=== PATIENT | female | born 1985 | race Caucasian/White ===

== ENCOUNTER 2020-01-20 12:30 | Inpatient (IN) | payer BC, OTHER ==
[2020-01-20 13:13] LABS: BASO % 0.7 % (0-2.0); HEMOGLOBIN 9.3 GM/dL (10.7-15.3); LYMPH % 18.6 % (8-40); MCH 23.5 pg (25.7-33.7); MCHC 31.9 g/dl (32.0-36.0); MEAN CELL VOLUME 73.7 fl (80-96); MEAN PLT VOLUME 8.9 fl (7.5-11.1); MONO % 8.1 % (3.8-10.2); NEUT % 67.6 % (42.8-82.8); PLATELET COUNT 251 K/MM3 (134-434); RBC 3.94 M/mm3 (3.60-5.2); RDW 17.7 % (11.6-15.6); WHITE BLOOD COUNT 8.7 K/mm3 (4.0-10.0)
[2020-01-20 13:24] LABS: INR 0.93 (0.83-1.09)
[2020-01-20 13:26] LABS: ACTIVATED PTT 25.4 SECONDS (25.2-36.5)
[2020-01-20 13:57] LABS: ALBUMIN 2.6 g/dl (3.4-5.0); BILIRUBIN,TOTAL 0.6 mg/dL (0.2-1); BLOOD UREA NITROGEN 11.8 mg/dL (7-18); CALCIUM 8.7 mg/dL (8.5-10.1); CREATININE 0.5 mg/dL (0.55-1.3); POTASSIUM 4.1 mmol/L (3.5-5.1); URIC ACID 3.4 mg/dL (2.6-7.2)
[2020-01-20 14:05] LABS: URINE APPEARANCE CLEAR; URINE BILIRUBIN NEGATIVE (NEGATIVE); URINE COLOR YELLOW; URINE GLUCOSE (UA) NEGATIVE (NEGATIVE); URINE KETONE NEGATIVE (NEGATIVE); URINE LEUK ESTERASE NEGATIVE (NEGATIVE); URINE NITRITE NEGATIVE (NEGATIVE); URINE PROTEIN NEGATIVE (NEGATIVE); URINE UROBILINOGEN 0.2 mg/dL (0.2-1.0)
[2020-01-20 16:33] LABS: BASO % 0.4 % (0-2.0); EOS % 4.5 % (0-4.5); HEMOGLOBIN 9.5 GM/dL (10.7-15.3); LYMPH % 15.4 % (8-40); MCH 24.6 pg (25.7-33.7); MCHC 32.7 g/dl (32.0-36.0); MEAN CELL VOLUME 75.2 fl (80-96); MEAN PLT VOLUME 9.8 fl (7.5-11.1); MONO % 5.8 % (3.8-10.2); NEUT % 73.9 % (42.8-82.8); PLATELET COUNT 279 K/MM3 (134-434); RBC 3.86 M/mm3 (3.60-5.2); RDW 18.2 % (11.6-15.6); WHITE BLOOD COUNT 10.6 K/mm3 (4.0-10.0)
[2020-01-20 16:35] VITALS: BMI 26.9
[2020-01-20 16:41] LABS: INR 0.93 (0.83-1.09)
[2020-01-20 16:44] LABS: ACTIVATED PTT 24.6 SECONDS (25.2-36.5)
--- OUTSIDE RECORDS SUMMARY | 2020-01-20 16:49 | XMS ---
:1985 Author Organization [facility] Support Name Relationship Address Phone [employer] Unavailable [address] [address] [address] [place] [address] HAZEL LOTT MOTHER [address] PH [phone] [place] [address] Re-disclosure Warning The records that you are about to access may contain information from federally- assisted alcohol or drug abuse programs. If such information is present, then the following federally mandated warning applies: This information has been disclosed to you from records protected by federal confidentiality rules (42 CFR part 2). The federal rules prohibit you from making any further disclosure of this information unless further disclosure is expressly permitted by the written consent of the person to whom it pertains or as otherwise permitted by 42 CFR part 2. A general authorization for the release of medical or other information is NOT sufficient for this purpose. The Federal rules restrict any use of the information to criminally investigate or prosecute any alcohol or drug abuse patient.The records that you are about to access may contain highly sensitive health information, the redisclosure of which is protected by Article 27-F of the [facility] Public Health law. If you continue you may haveaccess to information: Regarding HIV / AIDS; Provided by facilities licensed or operated by the [facility] Office of Mental Health; or Provided by the [facility] Office for People With Developmental Disabilities. If such information is present, then the following [facility] mandated warning applies: This information has been disclosed to you from confidential records which are protected by state law. State law prohibits you from making any further disclosure of this information without the specific written consent of the person to whom it pertains, or as otherwise permitted by law. Any unauthorized further disclosure in violation of state law may result in a fine or penitentiary sentence or both. A general authorization for the release of medical or other information is NOT sufficient authorization for further disclosure. Insurance Providers Payer name Policy type / Policy ID Covered Covered democrat's Policy Plan Coverage type democrat ID relationship to Jarvis Information jarvis BC OUT OF [id number] [id number]
[2020-01-20 16:56] LABS: BLOOD UREA NITROGEN 12.1 mg/dL (7-18); CALCIUM 8.9 mg/dL (8.5-10.1); CREATININE 0.5 mg/dL (0.55-1.3); POTASSIUM 4.2 mmol/L (3.5-5.1)
[2020-01-20] MEDS: SODIUM CHLORIDE 1,000 ML IV SCH (19:00)
[2020-01-20] MEDS ORDERED: DINOPROSTONE 10 MG VAGINAL SUPPOSITORY VG ONE (20:45)
--- NOTE | 2020-01-20 21:47 | HP ---
Past Medical History - Primary Care Physician PCP:: Faisal Tierney - Admission Chief Complaint: 34yo P1 with at EGA 38w1d admitted for labor indx with dx chronic HTN and superimposed preeclampsia. History of Present Illness: Pt has chronic HTN on Metoprolol that she takes daily. Her BP has been normal during the entire . The pt was seen in the office today and noted to have BP 140-150/90's. She is o/w asymptomatic. The pt has normal labs and no protein in UA. is complicated by GDM A2 and excessive weight gain. Vaginal cx is GBS positive. History Source: Patient, Medical Record Limitations to Obtaining History: No Limitations - Past Medical History LIFE SKILLS TEACHER: No: Alzheimer's, CVA, Dementia, Migraine, Multiple Sclerosis, Peripheral Neuropathy, Parkinson's, Seizure, Syncope, TIA, Vertigo, Other Cardiovascular: Yes: HTN, Other (patent foramen ovale with left to right shunt.) Pulmonary: No: Asthma, Bronchitis, Cancer, COPD, O2 Dependent, Pneumonia, Previously Intubated, Pulmonary Embolus, Pulmonary Fibrosis, Sleep Apnea, Other Gastrointestinal: No: Ascites, Cancer, Constipation, Crohn's Disease, Diverticulitis, Diverticulosis, Esophageal Varices, Gastritis, GERD, GI Bleed, Hemorrhoids, Hiatal Hernia, Inflamatory Bowel Disease, Irritable Bowel Disease, Pancreatitis, Peptic Ulcer Disease, Ulcerative Colitis, Other Hepatobiliary: No: Cirrhosis, Cholelithiasis, Cholecystitis, Choledocholithiasis, Hepatitis A, Hepatitis B, Hepatitis C, Other Renal/: No: Renal Failure, Renal Inusuff, BPH, Cancer, Hematuria, Hemodialysis, Neurogenic Bladder, Renal Calculi, UTI, Other Reproductive: No: Ectopic , Endometriosis, Fibroids, PID, Polycystic Ovary Syndrome, Postmenopausal, Other ...: 2 ...Para: 1 ...Term: 1 ...: 0 ...Spon : 0 ...Induced : 0 ...Living Children: 1 ...Multiple Gestation: 0 ...LMP: 04/28/20 ... Weeks Gestation by Dates: 38.1 ...EDC by Dates: 02/02/20 Heme/Onc: Yes: Anemia Infectious Disease: No: AIDS, C-Diff, Herpes Zoster, HIV, MRSA, STD's, Tuberculosis, VREF, Other Psych: No: Addictions, Anxiety, Bipolar, Depression, Panic, Psychosis, Schizophrenia, Other Musculoskeletal: No: Bursitis, Chronic low back pain, Hemiparesis, Hemiplegia, Osteoarthritis, Paraplegia, Other Rheumatology: No: Fibromyalgia, Gout, Lupus, Rheumatoid Arthritis, Sarcoidosis, Vasculitis, Other ENT: No: Allergic Rhinitis, Sinusitis, Other Endocrine: No: Davenport's Disease, Paresh's Disease, Diabetes Insipidus, Diabetes Mellitus, Hyperparathyroidism, Hyperthyroidism, Hypothyroidism, Osteopenia, SIADH, Other Dermatology: No: Basal Cell, Cellulitis, Eczema, Melanoma, Psoriasis, Squamous Cell, Other - Past Surgical History Past Surgical History: Yes: None Hx Myomectomy: No Hx Transabdominal Cerclage: No - Smoking History Smoking history: Never smoked Have you smoked in the past 12 months: No - Alcohol/Substance Use Hx Alcohol Use: No History of Substance Use: reports: None - Social History Usual Living Arrangement: Yes: With Spouse, With Child Do you think of yourself as: Straight/Heterosexual ADL: Independent History of Recent Travel: No Home Medications - Allergies Allergies/Adverse Reactions: Allergies Allergy/AdvReac Type Severity Reaction Status Date / Time No Known Drug Allergies Allergy Verified 01/20/20 13:35 ENVIORNMENTAL OUTDOOR Allergy Uncoded 11/30/15 21:41 ALLERGIES - Home Medications Home Medications: Ambulatory Orders Aspirin 81 tab PO DAILY 01/17/16 Metoprolol/Hydrochlorothiazide 12.5 tab PO DAILY 01/17/16 Vitamins (Sjr) - 1 tab PO DAILY 01/17/16 Insulin (Levemir) [Levemir Vial] 50 units SQ HS 01/20/20 Family Medical History Family History: Unremarkable Review of Systems - Review of Systems Constitutional: reports: No Symptoms Eyes: reports: No Symptoms HENT: reports: No Symptoms Neck: reports: No Symptoms Cardiovascular: reports: No Symptoms Respiratory: reports: No Symptoms Gastrointestinal: reports: No Symptoms Genitourinary: reports: No Symptoms Breasts: reports: No Symptoms Reported Musculoskeletal: reports: No Symptoms Integumentary: reports: No Symptoms Neurological: reports: No Symptoms Endocrine: reports: No Symptoms Hematology/Lymphatic: reports: No Symptoms Psychiatric: reports: No Symptoms Pain Intensity: 0 Physical Exam - Maternity Vital Signs: Vital Signs Temperature 98.2 F 01/20/20 19:00 Pulse Rate 106 H 01/20/20 16:16 Respiratory Rate 17 01/20/20 16:16 Blood Pressure 143/97 01/20/20 19:00 O2 Sat by Pulse Oximetry (%) 100 01/20/20 12:55 Constitutional: Yes: Well Nourished, No Distress, Calm Eyes: Yes: WNL, Conjunctiva Clear, EOM Intact HENT: Yes: WNL, Atraumatic, Normocephalic Neck: Yes: WNL, Supple, Trachea Midline Cardiovascular: Yes: WNL, Regular Rate and Rhythm Lungs: Clear to auscultation, Normal air movement - Abdominal Exam/OB Fundal Height: 39 Number of Fetuses: Single Presentation: Vertex Contractions: Yes Regularity: Irritability Intensity: Unaware Monitor Mode: External Heart Rate (range): 130 Heart Rate Location: Midline Category: I Accelerations: Uniform Decelerations: None - Vaginal Exam/OB Vaginal Bleeding: No Speculum Exam: No Dilatation (cm): 1 Effacement (%): 0 Amniotic Membrane Status: Intact Presentation: Vertex/Position Station: -3 (Gynecoid pelvimetry, EFW ~3600g by Mil maneuvers) - Physical Exam Musculoskeletal: Yes: WNL Extremities: Yes: WNL Edema: No Integumentary: Yes: WNL Deep Tendon Reflex Grade: Normal +2 ...Motor Strength: WNL Psychiatric: Yes: WNL, Alert, Oriented - Labs Lab Results: CBC, BMP 01/20/20 16:00 01/20/20 16:00 Hemorrhage Risk Assessment - Risk Factors Medium Risk Factors: Yes: Hematocrit < 30% & other (on ASA) High Risk Factors: Yes: None Risk Score: 1 Risk Level: Medium Risk Imaging - Results Ultrasound: Report Reviewed Assessment/Plan 34yo P1 with at EGA 38w1d admitted for labor indx with dx chronic HTN and superimposed preeclampsia. Pt is not in labor. Fetus with Category I tracing. Adequate gynecoid pelvimetry on exam. We had long discussion re: risks, benefits, and alternatives of labor induction. I explained the options of expectant management awaiting spontaneous labor, induction of labor, and elective section. The risks of uterine tachysystole, distress, uterine rupture, need for emergency C/S, hemorrhage, infection, scarring, etc. were discussed. We also discussed the risks of meconium aspiration, shoulder dystocia, and anesthesia options. The pt requested to proceed with induction. We discussed the alternative methods of induction with Cervidil, Cytotec, Folley ballon, and pitocin. The pt prefers Cervidil followed by pitocin, if needed. BP are in mild range and do not require MgSO4 or antihypertensive meds. GDM with euglycemia. Plan to monitor FSG in labor. Anemia. We discussed risk of PPH and possible Tx options.
--- NOTE | 2020-01-21 07:22 | PN ---
Ante-Partal Exam - Subjective Subjective: Pt feels mild ctx's Vital Signs: Vital Signs Temperature 97.9 F 01/21/20 05:00 Pulse Rate 86 01/21/20 01:00 Respiratory Rate 18 01/21/20 01:00 Blood Pressure 121/64 01/21/20 05:30 O2 Sat by Pulse Oximetry (%) 100 01/20/20 12:55 Bleeding: No Headache: No Visual changes: No Right upper quadrant pain: No Pain (scale 1-10): 2 - Contractions Contractions: Yes Regularity: Irregular Intensity: Mild Monitor Mode: External - Exam during Labor Heart Rate: 140 Variability: Moderate Heart Rate Location: Midline Category: I Monitor Accelerations: Present Monitor Decelerations: None Presentation: Vertex - Intrapartum Hemorrhage Risk Medium Risk Factors: None High Risk Factors: None Risk Score: 0 Risk Level: Low Risk - Assessment/Plan Assessment/Plan: 34 yo P1 with at EGA 38w2d undergoing labor indx. Fetus with Category I tracing BP is WNL FSG WNL Continue labor is ndx
[2020-01-21] MEDS ORDERED: AMPICILLIN - 2 GM in SODIUM CHLORIDE 100 ML IVPB ONE (09:00)
[2020-01-21] MEDS ORDERED: OXYTOCIN 30 UNITS in 0.9% NS 30 UNIT/500 ML INFUS.BAG IVPB ONE (09:06)
[2020-01-21] MEDS ORDERED: SODIUM CHLORIDE 100 ML IVPB ONE ×3 (09:08→17:05)
[2020-01-21] MEDS ORDERED: AMPICILLIN SODIUM 2 GM VIAL ONE (09:08)
[2020-01-21] MEDS: OXYTOCIN 30 UNITS in 0.9% NS 30 UNIT/500 ML INFUS.BAG IVPB SCH (09:15)
[2020-01-21] MEDS: SODIUM CHLORIDE 1,000 ML IV SCH (09:15)
[2020-01-21] MEDS ORDERED: AMPICILLIN SODIUM 1 GM VIAL ONE ×3 (12:02→20:41)
[2020-01-21] MEDS: AMPICILLIN - 1 GM in SODIUM CHLORIDE 100 ML IVPB SCH ×3 (12:42→21:00)
--- NOTE | 2020-01-21 13:39 | PN ---
Ante-Partal Exam - Subjective Subjective: comfortable s/p epidrual Vital Signs: Vital Signs Temperature 98.8 F 01/21/20 10:00 Pulse Rate 80 01/21/20 12:30 Respiratory Rate 20 01/21/20 12:30 Blood Pressure 134/86 01/21/20 12:30 O2 Sat by Pulse Oximetry (%) 100 01/20/20 12:55 Bleeding: No Headache: No Visual changes: No Right upper quadrant pain: No - Contractions Contractions: Yes Regularity: Regular Intensity: Unaware Monitor Mode: External - Exam during Labor Heart Rate: 140 Variability: Moderate Category: I Monitor Accelerations: Present Monitor Decelerations: Variable Exam: Vaginal Dilatation (cm): 4 Effacement (%): long Amniotic Membrane Status: Intact Station: -3 - Intrapartum Hemorrhage Risk Medium Risk Factors: None High Risk Factors: None Risk Score: 0 Risk Level: Low Risk - Assessment/Plan Assessment/Plan: 34 yo IOL for gHTN, GDM 1. cervical change, will continue pitocin per protocol 2. GBS negative 3. Will continue expectant management
[2020-01-21] MEDS ORDERED: FENTANYL/BUPIVACAINE/NS/PF - PCEA - 50 ML DISP.SYRIN EP ONE ×2 (14:57→20:11)
[2020-01-21] MEDS ORDERED: PCA PUMP NR ONE (14:57)
[2020-01-21] MEDS ORDERED: BUPIVACAINE HCL/PF 0.25% (2.5MG/ML) 10 ML VIAL ONE (14:58)
[2020-01-21] MEDS: FENTANYL/BUPIVACAINE/NS/PF - PCEA - 50 ML DISP.SYRIN EP SCH (15:25)
[2020-01-21] MEDS ORDERED: NALOXONE HCL 0.4 MG/ML VIAL IVPUSH PRN (15:28)
[2020-01-21] MEDS ORDERED: DEXTROSE 5%-LACTATED RINGERS 1,000 ML IV SCH (17:15)
--- NOTE | 2020-01-21 17:31 | PN ---
Ante-Partal Exam - Subjective Subjective: Patient comfortable s/p epidural Vital Signs: Vital Signs Temperature 97.7 F 01/21/20 16:00 Pulse Rate 87 01/21/20 17:00 Respiratory Rate 20 01/21/20 17:00 Blood Pressure 113/71 01/21/20 17:00 O2 Sat by Pulse Oximetry (%) 100 01/21/20 17:00 Bleeding: No Headache: No Visual changes: No Right upper quadrant pain: No - Contractions Contractions: Yes Intensity: Moderate Monitor Mode: External - Exam during Labor Heart Rate: 140 Variability: Moderate Category: I Monitor Accelerations: Present Exam: Vaginal Dilatation (cm): 5 Effacement (%): 50 Amniotic Membrane Status: Ruptured (clear) Amniotic Fluid: Clear Station: -2 - Intrapartum Hemorrhage Risk Medium Risk Factors: None High Risk Factors: None Risk Score: 0 Risk Level: Low Risk - Assessment/Plan Assessment/Plan: 34 yo induction of labor for cHTN, GDM 1. Good cervical change, on pitocin AROM performed, clear fluid 2. GBS neg 3. Pain well controlled with epidural 4. Category I FHT - patient does not require intervention 5. Will proceed with expectant management
[2020-01-21] MEDS ORDERED: OXYTOCIN 20 UNITS in 0.9% NS 20 UNIT/1,000 ML INFUS.BAG IV ONE (20:41)
--- NOTE | 2020-01-21 20:41 | PN ---
Ante-Partal Exam - Subjective Subjective: Reports more pain with contractions Vital Signs: Vital Signs Temperature 98.2 F 01/21/20 20:00 Pulse Rate 94 H 01/21/20 19:15 Respiratory Rate 18 01/21/20 19:00 Blood Pressure 128/82 01/21/20 19:15 O2 Sat by Pulse Oximetry (%) 99 01/21/20 19:00 Bleeding: No Headache: No - Contractions Contractions: Yes Regularity: Regular Monitor Mode: External - Exam during Labor Heart Rate: 140 Variability: Moderate Category: II Monitor Accelerations: Present Monitor Decelerations: Variable Exam: Vaginal Dilatation (cm): 8 Effacement (%): 90 Amniotic Membrane Status: Ruptured Presentation: Vertex Station: -1 - Intrapartum Hemorrhage Risk Medium Risk Factors: None High Risk Factors: None Risk Score: 0 Risk Level: Low Risk - Assessment/Plan Assessment/Plan: 34 yo induction of labor 1. Good cevical change 2. currently category II FHT Patient placed on L lateral position, O2 via facemask Pitocin currently off, will monitor 3. GBS positive, on ampicillin currently afebrile 4. GDM - FS 88 5. cHTN, superimposed PEC -- BPs within normal range 6. will continue expectant management
--- NOTE | 2020-01-21 23:40 | PN ---
Delivery - Delivery Vaginal Delivery: No Problems Type of Anesthesia: Epidural Episiotomy/Laceration: Midline, 2nd degree EBL (cc): 500 Delivery, Single - Stages of Labor Date 2nd Stage Initiated: 01/21/20 Time 2nd Stage Initiated: 21:50 Date of Delivery: 01/21/20 Time of Delivery: 23:05 Date Placenta Delivered: 01/21/20 Time Placenta Delivered: 23:29 Placenta: Yes: Spontaneous - Condition of Infant Infant Gender: Male Position: Left, OA - 1 Minute Total Score: 9 5 Minutes Total Score: 9 - Feeding Plan Initial Plan: Exclusive throughout hospitalization Remarks - Remarks Remarks: Patient progressed to fully dilated and at 2305 via delivered a viable male in BRETT position, APGARs 9,9. Weight and length unknown at this time. Head delivered spontaneously followed by shoulders and body without difficulty. with spontaneous cry and placed on mother's abdomen. Nose and mouth was bulb suctioned. Cord was clamped and cut. Perineum and vagina examined, a second degree laceration was noted and repaired in the usual fashion. Rectal exam revealed no sutures in rectum. Placenta was delivered spontaneously and intact. 20 units of pitocin in 1 L IVF was given. Mild atony noted was noted Hemabate given IM x1 Good resolution of atony with minimal residual bleeding All counts correct x 2. Mother and infant stable in LDR. EBL 500cc.
[2020-01-21] MEDS ORDERED: METHYLERGONOVINE MALEATE 0.2 MG/1 ML AMP IM PRN (23:42)
[2020-01-21] MEDS ORDERED: BENZOCAINE 28 GM HEMORRHOIDAL OINTMENT TP PRN (23:42)
[2020-01-21] MEDS ORDERED: BENZOCAINE 20% 57 GM BOTTLE TP PRN (23:42)
[2020-01-21] MEDS ORDERED: WITCH HAZEL 50% (TUCKS) 40 PAD/JAR PAD TP PRN (23:42)
[2020-01-21] MEDS ORDERED: BISACODYL 10 MG SUPP.RECT RC PRN (23:42)
[2020-01-21] MEDS ORDERED: OXYTOCIN 20 UNITS in 0.9% NS 20 UNIT/1,000 ML INFUS.BAG IV SCH (23:45)
--- NOTE | 2020-01-22 00:10 | PN ---
Post Progress Note - Subjective Subjective: Patient without acute complaints. Reports tolerating oral intake without nausea or vomiting. Ambulating without dizziness. Denies fevers or chills. Pain well controlled with oral pain medication. without difficulty. Passing flatus. Post Day: 1 Type of Delivery: Vital Signs: Vital Signs Temperature 98.2 F 01/21/20 22:00 Pulse Rate 99 H 01/21/20 21:45 Respiratory Rate 20 01/21/20 21:45 Blood Pressure 146/92 01/21/20 21:45 O2 Sat by Pulse Oximetry (%) 100 01/21/20 21:45 Breast Exam: Yes: Soft Uterus: Yes: Fundus Firm, Fundus below umbilicus Abdomen/GI: Yes: Abdomen soft, Passing flatus, Tolerating PO. No: Abdominal Distention, Tender Lochia: Yes: Rubra Lochia, amount: Moderate Extremities: Yes: Calves non-tender, Edema (trace) - Labs Labs: CBC WBC 10.6 K/mm3 (4.0-10.0) H 01/20/20 16:00 RBC 3.86 M/mm3 (3.60-5.2) 01/20/20 16:00 Hgb 9.5 GM/dL (10.7-15.3) L 01/20/20 16:00 Hct 29.0 % (32.4-45.2) L 01/20/20 16:00 MCV 75.2 fl (80-96) L 01/20/20 16:00 MCH 24.6 pg (25.7-33.7) L 01/20/20 16:00 MCHC 32.7 g/dl (32.0-36.0) 01/20/20 16:00 RDW 18.2 % (11.6-15.6) H 01/20/20 16:00 Plt Count 279 K/MM3 (134-434) 01/20/20 16:00 MPV 9.8 fl (7.5-11.1) D 01/20/20 16:00 Absolute Neuts (auto) 7.8 K/mm3 (1.5-8.0) 01/20/20 16:00 Neutrophils % 73.9 % (42.8-82.8) 01/20/20 16:00 Lymphocytes % 15.4 % (8-40) 01/20/20 16:00 Monocytes % 5.8 % (3.8-10.2) 01/20/20 16:00 Eosinophils % 4.5 % (0-4.5) 01/20/20 16:00 Basophils % 0.4 % (0-2.0) 01/20/20 16:00 Nucleated RBC % 0 % (0-0) 01/20/20 16:00 Assessment/Plan 34 yo PPD # 1 s/p , afebrile, vital signs stable, doing well 1. Continue routine care. 2. AM CBC with mild anemia Patient with uterine atony PP Normal lochia now Will continue to monitor, plan to repeat CBC PPD #2 3. Rh positive status, no rhogam indicated. 4. Encourage ambulation 5. Continue oral pain medication 6. Anticipate discharge home day #2
[2020-01-22] MEDS ORDERED: CARBOPROST TROMETHAMINE 250 MCG/ML AMPUL IM ONE (00:30)
[2020-01-22] MEDS ORDERED: OXYTOCIN 20 UNITS in 0.9% NS 20 UNIT/1,000 ML INFUS.BAG IV ONE ×2 (00:31→08:08)
[2020-01-22] MEDS: ACETAMINOPHEN 325 MG TABLET (FP) PO PRN ×3 (04:37→13:28)
[2020-01-22] MEDS: IBUPROFEN 600 MG TABLET (FP) PO PRN ×3 (04:38→13:27)
[2020-01-22] MEDS ORDERED: IBUPROFEN 600 MG TABLET (FP) PO ONE ×2 (04:40→08:07)
[2020-01-22] MEDS ORDERED: ACETAMINOPHEN 325 MG TABLET (FP) ONE ×2 (04:40→08:07)
[2020-01-22] MEDS: AMPICILLIN - 1 GM in SODIUM CHLORIDE 100 ML IVPB SCH (07:45)
[2020-01-22] MEDS: SODIUM CHLORIDE 1,000 ML IV SCH (07:48)
[2020-01-22 07:52] LABS: BASO % 0.2 % (0-2.0); EOS % 0.3 % (0-4.5); HEMATOCRIT 25.4 % (32.4-45.2); LYMPH % 8.4 % (8-40); MCH 23.2 pg (25.7-33.7); MCHC 31.5 g/dl (32.0-36.0); MEAN CELL VOLUME 73.6 fl (80-96); MEAN PLT VOLUME 9.3 fl (7.5-11.1); MONO % 5.7 % (3.8-10.2); NEUT % 85.4 % (42.8-82.8); PLATELET COUNT 242 K/MM3 (134-434); RBC 3.46 M/mm3 (3.60-5.2); RDW 18.2 % (11.6-15.6); WHITE BLOOD COUNT 15.4 K/mm3 (4.0-10.0)
[2020-01-22] MEDS: OXYTOCIN 30 UNITS in 0.9% NS 30 UNIT/500 ML INFUS.BAG IVPB SCH (08:00)
[2020-01-22] MEDS: FERROUS SO4 325 MG TABLET (FP) PO SCH ×3 (09:00→17:32)
[2020-01-22] MEDS: PRENATAL VITAMINS W/ FOLIC ACID TABLET (FP) PO SCH (10:15)
[2020-01-22] MEDS ORDERED: PRENATAL VITAMINS W/ FOLIC ACID TABLET (FP) PO ONE (10:26)
[2020-01-22] MEDS ORDERED: FERROUS SO4 325 MG TABLET (FP) ONE (10:26)
[2020-01-22] MEDS ORDERED: METOPROLOL SUCCINATE 12.5 MG PO SCH (14:30)
[2020-01-22] MEDS: FENTANYL/BUPIVACAINE/NS/PF - PCEA - 50 ML DISP.SYRIN EP SCH (16:10)
[2020-01-22] MEDS: METOPROLOL TARTRATE 25 MG TABLET (FP) PO SCH (16:10)
[2020-01-22] MEDS ORDERED: SENNOSIDES/DOCUSATE COMBO (SENNA PLUS) TABLET (UD) PO PRN (22:00)
--- NOTE | 2020-01-23 06:47 | DS ---
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: Vital Signs Temperature 98.4 F 01/23/20 05:49 Pulse Rate 93 H 01/23/20 05:49 Respiratory Rate 20 01/23/20 05:49 Blood Pressure 116/62 01/23/20 05:49 O2 Sat by Pulse Oximetry (%) 100 01/22/20 00:30 Constitutional: Yes: Well Nourished, No Distress, Calm Eyes: Yes: WNL, Conjunctiva Clear, EOM Intact HENT: Yes: WNL, Atraumatic, Normocephalic Neck: Yes: WNL, Supple, Trachea Midline Cardiovascular: Yes: WNL, Regular Rate and Rhythm Respiratory: Yes: WNL, Regular, CTA Bilaterally Gastrointestinal: Yes: WNL ...Rectal Exam: Yes: WNL Renal/: Yes: WNL External Genitalia: Yes: Normal ....Post : Yes: Uterus firm, Uterus non-tender, Slight lochia rubra Breast(s): Yes: WNL Musculoskeletal: Yes: WNL Extremities: Yes: WNL Integumentary: Yes: WNL Neurological: Yes: WNL, Alert, Oriented ...Motor Strength: WNL Psychiatric: Yes: WNL, Alert, Oriented Labs: CBC, BMP 01/22/20 07:15 01/20/20 16:00 Delivery - Delivery Vaginal Delivery: No Problems, Spontaneous Type of Anesthesia: Epidural Episiotomy/Laceration: Midline, 2nd degree EBL (cc): 500 Delivery, Single - Stages of Labor Date 2nd Stage Initiated: 01/21/20 Time 2nd Stage Initiated: 21:50 Date of Delivery: 01/21/20 Time of Delivery: 23:05 Time Placenta Delivered: 23:29 Placenta: Yes: Spontaneous - Condition of Socket Puller/Clip Riveter Present: No Infant Gender: Male Weight: 7 lb 5 oz Position: Left, OA Total Hours ROM (Hrs/Mins): 5 HOURS/59MINUTES - 1 Minute Total Score: 9 5 Minutes Total Score: 9 - [place] Feeding Plan Initial Plan: Exclusive throughout hospitalization Discharge Summary Problems reviewed: Yes Reason For Visit: INDUCTION OF LABOR Procedures: Principal: Hospital Course: no complication Health Concerns: HTN, GDM Plan of Treatment: , follow up office 1 week, cont BGM Condition: Good - Instructions Diet, Activity, Other Instructions: Follow up 1 wks for visit and BP check Physical activity Resume your normal everyday activity as tolerated no heavy lifting or exercise until seen by your surgeon. You may walk unlimited melanie of and climb stairs. You may resume driving the car when you feel safe and comfortable behind the wheel. No sexual activity as instructed. Diet There are no dietary restrictions. Eat healthy, high-fiber foods. Drink 6 to 8 glasses of liquid each day. This will assist in keeping your bowels are regular. Pain management You may take Tylenol or acetaminophen or Ibuprofen (for example, Motrin, Advil etc.) for moderate to severe pain. Call MD for any of the following: Severe pain not relieved by medication Fever of 101 or higher Excessive bleeding or drainage on dressing Inability to urinate Referrals: Faisal Tierney MD [Staff Physician] - Disposition: HOME - Home Medications Comprehensive Discharge Medication List: Ambulatory Orders Aspirin 81 tab PO DAILY 01/17/16 Metoprolol/Hydrochlorothiazide 12.5 tab PO DAILY 01/17/16 Vitamins (Sjr) - 1 tab PO DAILY 01/17/16 Insulin (Levemir) [Levemir Vial] 50 units SQ HS 01/20/20 Ibuprofen [Motrin -] 600 mg PO TID #21 tablet 01/23/20
[2020-01-23] MEDS: FERROUS SO4 325 MG TABLET (FP) PO SCH (07:30)
[2020-01-23 08:33] LABS: HEMATOCRIT 21.6 % (32.4-45.2); MCH 24.2 pg (25.7-33.7); MCHC 32.3 g/dl (32.0-36.0); MEAN CELL VOLUME 74.9 fl (80-96); MEAN PLT VOLUME 9.3 fl (7.5-11.1); PLATELET COUNT 229 K/MM3 (134-434); RBC 2.89 M/mm3 (3.60-5.2); RDW 17.8 % (11.6-15.6); WHITE BLOOD COUNT 10.5 K/mm3 (4.0-10.0)
[2020-01-23] MEDS ORDERED: ASPIRIN COATED 81 MG TABLET.EC PO SCH (10:00)
[2020-01-23] MEDS: OXYTOCIN 30 UNITS in 0.9% NS 30 UNIT/500 ML INFUS.BAG IVPB SCH (10:09)
[2020-01-23] MEDS: METOPROLOL TARTRATE 25 MG TABLET (FP) PO SCH (10:10)
[2020-01-23] MEDS: PRENATAL VITAMINS W/ FOLIC ACID TABLET (FP) PO SCH (10:11)
[2020-01-23 10:45] VITALS: BP 140/80; PULSE 95; TEMP 98.1
== END 2020-01-23 10:25 | disposition home or self-care (01) | DRG 807 ==
LOC: JDEL 12:30 → JLDR 15:00 → J3N 01-22 11:22
PROVIDERS: ADMIT Obstetrics & Gynecology; ATTEND Obstetrics & Gynecology
PROC: 3E0P7VZ Introduction of Hormone into Female Reproductive, Via Natural or Artificial Opening (ICD-10-PCS; 2020-01-20)
PROC: 10E0XZZ Delivery of Products of Conception, External Approach (ICD-10-PCS; principal; 2020-01-21)
PROC: 0KQM0ZZ Repair Perineum Muscle, Open Approach (ICD-10-PCS; 2020-01-21)
PROC: 0W8NXZZ Division of Female Perineum, External Approach (ICD-10-PCS; 2020-01-21)
PROC: 3E033VJ Introduction of Other Hormone into Peripheral Vein, Percutaneous Approach (ICD-10-PCS; 2020-01-21)
PROC: 10907ZC Drainage of Amniotic Fluid, Therapeutic from Products of Conception, Via Natural or Artificial Opening (ICD-10-PCS; 2020-01-21)
PROC: 10E0XZZ Delivery of Products of Conception, External Approach (ICD-10-PCS; 2020-01-21)
DX: O10.92 Unspecified pre-existing hypertension complicating childbirth (principal); Z37.0 Single live birth; O70.1 Second degree perineal laceration during delivery; O11.4 Pre-existing hypertension with pre-eclampsia, complicating childbirth; O24.424 Gestational diabetes mellitus in childbirth, insulin controlled; O99.824 Streptococcus B carrier state complicating childbirth; Z3A.38 38 weeks gestation of pregnancy
CPT/HCPCS: 36415; 59409; 80048; 80053; 81003; 82947; 82962; 84550; 85025; 85027; 85384; 85610; 85730; 86780; 86850; 86900; 86901; 86922; 87389; U0003

== ENCOUNTER 2022-09-15 07:00 | Inpatient (IN) | payer OTHER ==
[2022-09-15] MEDS: ELECTROLYTE-148 SOLN 1,000 ML IV SCH ×2 (08:45→21:20)
[2022-09-15 09:26] LABS: BASO % 0.4 % (0-2.0); EOS % 1.8 % (0-4.5); HEMATOCRIT 35.5 % (32.4-45.2); HEMOGLOBIN 11.9 GM/dL (10.7-15.3); LYMPH % 20.3 % (8-40); MCH 28.4 pg (25.7-33.7); MCHC 33.5 g/dl (32.0-36.0); MEAN CELL VOLUME 84.8 fl (80-96); MEAN PLT VOLUME 8.7 fl (7.5-11.1); MONO % 7.1 % (3.8-10.2); NEUT % 70.4 % (42.8-82.8); PLATELET COUNT 179 10^3/uL (134-434); RBC 4.19 M/mm3 (3.60-5.2); RDW 22.3 % (11.6-15.6); WHITE BLOOD COUNT 6.6 K/mm3 (4.0-10.0)
[2022-09-15] MEDS ORDERED: OXYTOCIN 30 UNITS in 0.9% NS 30 UNIT/500 ML INFUS.BAG IVPB SCH (09:30)
[2022-09-15 09:32] LABS: INR 0.97 (0.83-1.09); PROTHROMBIN TIME (PATIENT) 11.2 SEC (9.7-13.0)
[2022-09-15 09:35] LABS: ACTIVATED PTT 26.1 SECONDS (25.2-36.5)
[2022-09-15 09:49] LABS: POTASSIUM 3.3 mmol/L (3.5-5.1)
[2022-09-15 09:51] LABS: BLOOD UREA NITROGEN 7.8 mg/dL (7-18); CALCIUM 8.7 mg/dL (8.5-10.1)
[2022-09-15 09:55] LABS: CREATININE 0.6 mg/dL (0.55-1.3)
[2022-09-15 10:04] VITALS: BMI 25.8
[2022-09-15] MEDS ORDERED: OXYTOCIN 30 UNITS in 0.9% NS 30 UNIT/500 ML INFUS.BAG IVPB ONE (10:06)
[2022-09-15 10:14] LABS: ANISOCYTOSIS 1+; MACROCYTOSIS 0
[2022-09-15] MEDS ORDERED: FENTANYL/BUPIVACAINE/NS/PF - PCEA - 50 ML DISP.SYRIN EP ONE ×2 (17:05→22:04)
[2022-09-15] MEDS ORDERED: FENTANYL CITRATE/PF 50 MCG/ML VIAL ONE (17:09)
[2022-09-15] MEDS: FENTANYL/BUPIVACAINE/NS/PF - PCEA - 50 ML DISP.SYRIN EP SCH ×2 (17:25→22:05)
[2022-09-15] MEDS ORDERED: NALOXONE HCL 0.4 MG/ML VIAL IVPUSH PRN (17:57)
[2022-09-15] MEDS ORDERED: LIDOCAINE HCL 1% PRESERVATIVE FREE - 30ML VIAL ONE (22:10)
[2022-09-15] MEDS ORDERED: OXYTOCIN 20 UNITS in 0.9% NS 20 UNIT/1,000 ML INFUS.BAG IV ONE (22:10)
[2022-09-15] MEDS ORDERED: oxyCODONE HCL 5 MG TABLET PO PRN (23:16)
[2022-09-15] MEDS ORDERED: BENZOCAINE 28 GM HEMORRHOIDAL OINTMENT TP PRN (23:16)
[2022-09-15] MEDS ORDERED: WITCH HAZEL 50% (TUCKS) 40 PAD/JAR PAD TP PRN (23:16)
[2022-09-15] MEDS ORDERED: BISACODYL 10 MG SUPP.RECT RC PRN (23:16)
[2022-09-15] MEDS ORDERED: METHYLERGONOVINE MALEATE 0.2 MG/1 ML AMP IM PRN (23:16)
[2022-09-15] MEDS ORDERED: ACETAMINOPHEN 325 MG TABLET (FP) PO PRN (23:16)
[2022-09-15] MEDS ORDERED: BENZOCAINE 20% 57 GM BOTTLE TP PRN (23:16)
[2022-09-15] MEDS ORDERED: ONDANSETRON 4 MG/2 ML VIAL IVPB ONE (23:18)
[2022-09-15] MEDS ORDERED: OXYTOCIN 20 UNITS in 0.9% NS 20 UNIT/1,000 ML INFUS.BAG IV SCH (23:30)
[2022-09-16] MEDS: IBUPROFEN 600 MG TABLET (FP) PO PRN ×3 (06:04→18:06)
[2022-09-16 06:59] LABS: BASO % 0.5 % (0-2.0); EOS % 0.6 % (0-4.5); HEMATOCRIT 32.7 % (32.4-45.2); HEMOGLOBIN 11.3 GM/dL (10.7-15.3); LYMPH % 10.6 % (8-40); MCH 28.9 pg (25.7-33.7); MCHC 34.5 g/dl (32.0-36.0); MEAN PLT VOLUME 8.9 fl (7.5-11.1); MONO % 5.3 % (3.8-10.2); PLATELET COUNT 158 10^3/uL (134-434); RBC 3.89 M/mm3 (3.60-5.2); RDW 22.3 % (11.6-15.6); WHITE BLOOD COUNT 11.5 K/mm3 (4.0-10.0)
[2022-09-16] MEDS: PRENATAL VITAMINS W/ FOLIC ACID TABLET (FP) PO SCH (08:59)
[2022-09-16 10:09] VITALS: RESP 18
[2022-09-16] MEDS: ASPIRIN COATED 81 MG TABLET.EC PO SCH (10:29)
[2022-09-16] MEDS ORDERED: SENNOSIDES/DOCUSATE COMBO (SENNA PLUS) TABLET (UD) PO PRN (22:00)
[2022-09-17] MEDS: IBUPROFEN 600 MG TABLET (FP) PO PRN (06:16)
[2022-09-17] MEDS: PRENATAL VITAMINS W/ FOLIC ACID TABLET (FP) PO SCH (09:48)
[2022-09-17] MEDS: ASPIRIN COATED 81 MG TABLET.EC PO SCH (09:49)
[2022-09-17 09:52] VITALS: BP 108/75; PULSE 89; TEMP 97.5
[2022-09-17] MEDS ORDERED: metoPROLOL SUCCINATE 25 MG TAB.SR.24H (FP) PO SCH (10:00)
== END 2022-09-17 11:40 | disposition home or self-care (01) | DRG 807 ==
LOC: JLDR 07:00 → J3W 09-16 02:08
PROVIDERS: ADMIT Obstetrics & Gynecology; ATTEND Obstetrics & Gynecology
PROC: 10E0XZZ Delivery of Products of Conception, External Approach (ICD-10-PCS; principal; 2022-09-15)
PROC: 0KQM0ZZ Repair Perineum Muscle, Open Approach (ICD-10-PCS; 2022-09-15)
DX: O70.1 Second degree perineal laceration during delivery (principal); Z37.0 Single live birth; Z3A.39 39 weeks gestation of pregnancy
CPT/HCPCS: 36415; 80048; 85025; 85610; 85730; 86780; 86850; 86900; 86901; C9803-CS; U0003; U0005

== ENCOUNTER 2022-10-02 14:11 | Inpatient (IN) | payer OTHER ==
[2022-10-02 14:21] VITALS: BMI 21.2
[2022-10-02] MEDS ORDERED: SODIUM CHLORIDE 0.9% 500 ML INFUS.BAG IV ONE (14:35)
[2022-10-02] MEDS ORDERED: ACETAMINOPHEN 1000 MG/100 ML BAG IVPB ONE ×2 (14:35→21:29)
[2022-10-02] MEDS ORDERED: ACETAMINOPHEN INJECTION 100 ML IVPB ONE (14:50)
[2022-10-02] MEDS ORDERED: METOCLOPRAMIDE HCL INJECTION 10 MG/2 ML VIAL IVPUSH ONE (15:23)
[2022-10-02] MEDS ORDERED: METOCLOPRAMIDE HCL INJECTION 10 MG/2 ML VIAL ONE (15:25)
[2022-10-02 16:13] LABS: BASO % 0.3 % (0-2.0); EOS % 5.8 % (0-4.5); HEMATOCRIT 45.2 % (32.4-45.2); HEMOGLOBIN 14.6 GM/dL (10.7-15.3); LYMPH % 19.5 % (8-40); MCH 28.7 pg (25.7-33.7); MCHC 32.4 g/dl (32.0-36.0); MEAN CELL VOLUME 88.7 fl (80-96); MEAN PLT VOLUME 9.2 fl (7.5-11.1); MONO % 4.2 % (3.8-10.2); NEUT % 70.2 % (42.8-82.8); PLATELET COUNT 386 10^3/uL (134-434); RDW 19.2 % (11.6-15.6); WHITE BLOOD COUNT 9.7 K/mm3 (4.0-10.0)
[2022-10-02 16:19] LABS: INR 1.08 (0.83-1.09); PROTHROMBIN TIME (PATIENT) 12.5 SEC (9.7-13.0)
[2022-10-02 16:21] LABS: ACTIVATED PTT 33.4 SECONDS (25.2-36.5)
[2022-10-02 16:31] LABS: POTASSIUM 4.3 mmol/L (3.5-5.1)
[2022-10-02 16:33] LABS: BLOOD UREA NITROGEN 20.8 mg/dL (7-18)
[2022-10-02 16:34] LABS: MAGNESIUM 2.3 mg/dL (1.8-2.4)
[2022-10-02 16:35] LABS: EPI CELLS 8 /uL (0-25.1); HYALINE CASTS 0 /uL (0-3.1); URINE APPEARANCE CLEAR; URINE BACTERIA 48 /uL (0-1359); URINE BILIRUBIN NEGATIVE (NEGATIVE); URINE COLOR YELLOW; URINE GLUCOSE (UA) NEGATIVE (NEGATIVE); URINE KETONE NEGATIVE (NEGATIVE); URINE LEUK ESTERASE 2+ (NEGATIVE); URINE NITRITE NEGATIVE (NEGATIVE); URINE PROTEIN NEGATIVE (NEGATIVE); URINE RBC 54 /uL (0-23.9); URINE UROBILINOGEN 0.2 mg/dL (0.2-1.0); URINE WBC 75 /uL (0-25.8)
[2022-10-02 16:37] LABS: CREATININE 0.7 mg/dL (0.55-1.3)
[2022-10-02 16:38] LABS: TOT PROT 7.7 g/dl (6.4-8.2)
[2022-10-02 16:39] LABS: BILIRUBIN,TOTAL 1.4 mg/dL (0.2-1)
[2022-10-02] MEDS ORDERED: KETOROLAC TROMETHAMINE 15 MG/ML VIAL IVPUSH ONE (17:22)
[2022-10-02] MEDS ORDERED: KETOROLAC TROMETHAMINE 15 MG/ML VIAL ONE (17:31)
[2022-10-02] MEDS ORDERED: metoPROLOL SUCCINATE 25 MG TAB.SR.24H (FP) PO ONE ×2 (17:55→18:01)
[2022-10-02 18:08] LABS: URIC ACID 5.2 mg/dL (2.6-7.2)
[2022-10-02] MEDS ORDERED: LABETALOL HCL 5 MG/1 ML (100MG/20 ML VIAL) IVPUSH ONE ×2 (18:33→21:06)
[2022-10-02] MEDS ORDERED: MAGNESIUM 4GM/H20 - 4 GM/100 ML IVPB IVPB ONE (18:45)
[2022-10-02] MEDS ORDERED: hydrALAZINE HCL 20 MG/ML VIAL IVPUSH ONE ×2 (19:09→19:42)
[2022-10-02] MEDS ORDERED: hydrALAZINE HCL 20 MG/ML VIAL ONE ×2 (19:22→19:42)
[2022-10-02] MEDS ORDERED: SODIUM CHLORIDE 1,000 ML IV SCH (19:45)
[2022-10-02] MEDS: MAGNESIUM SULFATE 20GM/500ML - 20 GM/500 ML INFUS.BAG IVPB SCH (20:01)
[2022-10-02] MEDS: SODIUM CHLORIDE 1,000 ML IV SCH (20:20)
[2022-10-02] MEDS ORDERED: LABETALOL HCL 20 MG/4 ML VIAL ONE (21:02)
[2022-10-02] MEDS ORDERED: NIFEdipine E.R. 30 MG TABLET PO ONE ×2 (22:11→22:14)
[2022-10-03] MEDS ORDERED: KETOROLAC TROMETHAMINE 30 MG/1 ML VIAL IM ONE
[2022-10-03 00:03] LABS: BASO % 1.2 % (0-2.0); EOS % 8.4 % (0-4.5); HEMATOCRIT 44.5 % (32.4-45.2); HEMOGLOBIN 14.7 GM/dL (10.7-15.3); LYMPH % 29.5 % (8-40); MCH 28.7 pg (25.7-33.7); MCHC 33.1 g/dl (32.0-36.0); MEAN CELL VOLUME 86.8 fl (80-96); MONO % 4.9 % (3.8-10.2); PLATELET COUNT 345 10^3/uL (134-434); RBC 5.13 M/mm3 (3.60-5.2); RDW 18.8 % (11.6-15.6); WHITE BLOOD COUNT 7.2 K/mm3 (4.0-10.0)
[2022-10-03] MEDS ORDERED: KETOROLAC TROMETHAMINE 30 MG/1 ML VIAL ONE (00:21)
[2022-10-03 00:43] LABS: CHLORIDE 107 mmol/L (98-107); POTASSIUM 3.8 mmol/L (3.5-5.1); SODIUM 140 mmol/L (136-145)
[2022-10-03 00:46] LABS: ALBUMIN 3.6 g/dl (3.4-5.0); ANION GAP 5 MMOL/L (8-16); CO2 28 mmol/L (21-32); GLUCOSE,RANDOM 146 mg/dL (74-106)
[2022-10-03 00:48] LABS: CREATININE 0.7 mg/dL (0.55-1.3)
[2022-10-03 00:49] LABS: SGOT/AST 14 U/L (15-37); SGPT/ALT 26 U/L (13-61)
[2022-10-03 00:50] LABS: BILIRUBIN,TOTAL 1.1 mg/dL (0.2-1)
[2022-10-03 00:52] LABS: ALK PHOS 98 U/L (45-117)
[2022-10-03 01:10] LABS: CALCIUM 8.4 mg/dL (8.5-10.1); MAGNESIUM 5.8 mg/dL (1.8-2.4)
[2022-10-03] MEDS ORDERED: MAGNESIUM SULFATE 20GM/500ML - 20 GM/500 ML INFUS.BAG ONE (04:42)
[2022-10-03] MEDS: SODIUM CHLORIDE 1,000 ML IV SCH ×2 (05:00→20:17)
[2022-10-03] MEDS: MAGNESIUM SULFATE 20GM/500ML - 20 GM/500 ML INFUS.BAG IVPB SCH (05:00)
[2022-10-03] MEDS ORDERED: ACETAMINOPHEN 325 MG TABLET (FP) ONE (05:25)
[2022-10-03] MEDS ORDERED: ACETAMINOPHEN 325 MG TABLET (FP) PO ONE (05:30)
[2022-10-03 06:30] LABS: BASO % 1.1 % (0-2.0); EOS % 7.9 % (0-4.5); HEMATOCRIT 42.1 % (32.4-45.2); HEMOGLOBIN 14.1 GM/dL (10.7-15.3); LYMPH % 23.3 % (8-40); MCH 29.5 pg (25.7-33.7); MCHC 33.4 g/dl (32.0-36.0); MEAN CELL VOLUME 88.4 fl (80-96); MEAN PLT VOLUME 8.3 fl (7.5-11.1); MONO % 4.5 % (3.8-10.2); NEUT % 63.2 % (42.8-82.8); PLATELET COUNT 337 10^3/uL (134-434); RBC 4.77 M/mm3 (3.60-5.2); RDW 18.5 % (11.6-15.6); WHITE BLOOD COUNT 6.6 K/mm3 (4.0-10.0)
[2022-10-03] MEDS ORDERED: oxyCODONE HCL 5 MG TABLET ONE (06:40)
[2022-10-03] MEDS ORDERED: oxyCODONE HCL 5 MG TABLET PO ONE (06:45)
[2022-10-03 06:49] LABS: CHLORIDE 105 mmol/L (98-107); POTASSIUM 4.1 mmol/L (3.5-5.1); SODIUM 140 mmol/L (136-145)
[2022-10-03 06:52] LABS: ALBUMIN 3.6 g/dl (3.4-5.0); ANION GAP 9 MMOL/L (8-16); BLOOD UREA NITROGEN 15.9 mg/dL (7-18); CO2 25 mmol/L (21-32); GLUCOSE,RANDOM 114 mg/dL (74-106)
[2022-10-03 06:55] LABS: CREATININE 0.6 mg/dL (0.55-1.3); SGOT/AST 18 U/L (15-37); SGPT/ALT 28 U/L (13-61)
[2022-10-03 06:57] LABS: BILIRUBIN,TOTAL 0.8 mg/dL (0.2-1); TOT PROT 6.7 g/dl (6.4-8.2)
[2022-10-03 06:58] LABS: ALK PHOS 89 U/L (45-117)
[2022-10-03 07:11] LABS: CALCIUM 6.8 mg/dL (8.5-10.1); MAGNESIUM 7.2 mg/dL (1.8-2.4)
[2022-10-03 07:13] LABS: INR 1.03 (0.83-1.09)
[2022-10-03 07:16] LABS: ACTIVATED PTT 32.8 SECONDS (25.2-36.5)
[2022-10-03] MEDS ORDERED: METOCLOPRAMIDE HCL INJECTION 10 MG/2 ML VIAL ONE (08:45)
[2022-10-03] MEDS ORDERED: METOCLOPRAMIDE HCL INJECTION 10 MG/2 ML VIAL IVPUSH ONE (08:45)
[2022-10-03] MEDS ORDERED: NIFEdipine E.R. 30 MG TABLET PO SCH (10:00)
[2022-10-03] MEDS ORDERED: ACETAMINOPHEN/CAFFEINE/BUTALBITAL 1 TAB PO ONE (14:45)
[2022-10-03] MEDS ORDERED: ACETAMINOPHEN/CAFFEINE/BUTALBITAL 1 TAB ONE (14:50)
[2022-10-03 15:42] LABS: MAGNESIUM 7.7 mg/dL (1.8-2.4)
[2022-10-03] MEDS ORDERED: NIFEdipine 10 MG CAPSULE (FP) ONE (17:50)
[2022-10-03] MEDS ORDERED: NIFEdipine E.R. 30 MG TABLET PO ONE (18:06)
[2022-10-03] MEDS ORDERED: NIFEdipine 10 MG CAPSULE (FP) PO ONE (18:06)
[2022-10-03 20:06] LABS: MAGNESIUM 5.6 mg/dL (1.8-2.4)
[2022-10-04 05:51] VITALS: TEMP 98.2
[2022-10-04] MEDS ORDERED: metoPROLOL SUCCINATE 25 MG TAB.SR.24H (FP) PO SCH (10:00)
[2022-10-04 13:39] VITALS: RESP 16
[2022-10-04 14:51] LABS: EPI CELLS >36 /uL (0-25.1); HYALINE CASTS 4 /uL (0-3.1); PH,URINE 5.5 (5.0-8.0); URINE APPEARANCE TURBID; URINE BACTERIA 156 /uL (0-1359); URINE BILIRUBIN NEGATIVE (NEGATIVE); URINE COLOR YELLOW; URINE GLUCOSE (UA) NEGATIVE (NEGATIVE); URINE KETONE NEGATIVE (NEGATIVE); URINE LEUK ESTERASE 3+ (NEGATIVE); URINE NITRITE NEGATIVE (NEGATIVE); URINE PROTEIN TRACE (NEGATIVE); URINE RBC 375 /uL (0-23.9); URINE UROBILINOGEN 0.2 mg/dL (0.2-1.0); URINE WBC 3558 /uL (0-25.8)
[2022-10-04 15:34] VITALS: BP 139/93; PULSE 68
[2022-10-04] MEDS ORDERED: SULFAMETHOXAZOLE/TRIMETHOPRIM 800MG/160MG D.S. TABLET PO ONE (15:35)
[2022-10-06 00:08] LABS: ALPHA 2 MACROGLOBULINS,QN 279 mg/dL (110-276); ALT(SGPT)P5P 21 IU/L (0-40); APOLIPOPROTEIN A-1. 158 mg/dL (116-209); CHOLESTEROL TOTAL 264 mg/dL (100-199); FIBROSIS SCORE 0.16 (0.00-0.21); GLUCOSE SERUM 101 mg/dL (70-99); HEIGHT 63 in (.); WEIGHT- 120 LBS (.)
== END 2022-10-04 17:13 | disposition home or self-care (01) | DRG 776 ==
LOC: JER 14:11 → JERBED 19:09 → JLDR 20:21 → J3W 10-03 21:01
PROVIDERS: ADMIT Obstetrics & Gynecology; ATTEND Obstetrics & Gynecology
DX: O16.5 Unspecified maternal hypertension, complicating the puerperium (principal); Q21.12 Patent foramen ovale; R51.9 Headache, unspecified
CPT/HCPCS: 0241U-QW; 36415; 70544-TC; 71045-TC-FY; 80053; 81003; 82172; 82247; 82465; 82947; 82977; 83010; 83615; 83735; 83883; 84439; 84450; 84460; 84478; 84481; 84484; 84550; 85025; 85610; 85730; 86376; 86800; 86850; 86900; 86901; 87086; 87186; 93005; 93010; 99285-25